=== PATIENT | female | born 1955 | race Caucasian/White ===

== ENCOUNTER 2021-05-17 14:11 | Emergency (ER) | payer MEDICARE, OTHER ==
[~2021-05-17 14:11] MED LIST: ASPIR 8181 MG PO; BUMEX1 MG PO; BUPROPION XL150 MG PO; CLARITIN10 MG PO; COREG 6.25MG6.25 MG PO; HYDROXYZINE 10M10 MG PO; LIPITOR20 MG PO; LOPRESSOR25 MG PO; MEDROL 4MG DOSEP4 MG PO; NAPROSYN500 MG PO; PEPCID AC20 MG PO; POTASSIUM CHLO10 ME1 PO; PREDNISONE 20MG20 MG PO; PRINIVIL20 MG PO; ROBAXIN500 MG PO; VASCEPA1 GM PO; ZESTRIL5 MG PO
[2021-05-17 16:09] LABS: BASOPHIL 0.5 % (0-2); EOSINOPHIL 1.6 % (0-7); HCT 41.5 % (37.0-47.0); HGB 13.3 g/dl (12.5-16.0); LYMPHOCYTE 20.8 % (15-48); MCH 31.4 pg (25.0-31.0); MCV 97.9 fL (78.0-100.0); MONOCYTE 11.1 % (0-12); MPV 9.8 fL (6.0-9.5); NEUTROPHIL 65.6 % (41-80); NRBC 0; PLT 237 K/uL (150-400); RBC 4.24 M/uL (4.20-5.40); RDW 12.9 % (11.5-14.0); WBC 10.3 K/uL (4.0-10.5)
[2021-05-17 16:24] LABS: C-REACTIVE PROTEIN 4.8 mg/dL (<=0.90); URIC ACID 9.6 mg/dL (2.6-6.2)
[2021-05-17] MEDS ORDERED: INDOMETHACIN25 MG PO (16:27)
== END 2021-05-17 18:08 | disposition home or self-care (01) ==
LOC: FER 14:11
PROVIDERS: Emergency Medicine
DX: M10.9 Gout, unspecified (principal); E11.9 Type 2 diabetes mellitus without complications; I10 Essential (primary) hypertension; F17.210 Nicotine dependence, cigarettes, uncomplicated; Z79.899 Other long term (current) drug therapy
CPT/HCPCS: 36415; 73630; 84550; 85025; 86140